=== PATIENT | female | born 1955 | race Caucasian/White ===

== ENCOUNTER 2018-10-03 05:33 | Inpatient (IN) | payer BC ==
[2018-09-25 16:06] LABS: BASOPHILS # (AUTO) 0.1 X10'3 (0-0.2); BASOPHILS % (AUTO) 0.7 % (0-1); EOSINOPHILS # (AUTO) 0.1 X10'3 (0-0.9); EOSINOPHILS % (AUTO) 1.2 % (0-6); LYMPHOCYTES # (AUTO) 3.9 X10'3 (1.1-4.8); LYMPHOCYTES % (AUTO) 37.9 % (21-51); MEAN CORPUSCULAR HEMOGLOBIN 30.2 PG (27.0-31.0); MEAN CORPUSCULAR HGB CONC 33.5 g/dL (33.0-36.5); MEAN CORPUSCULAR VOLUME 90.1 FL (78-98); MEAN PLATELET VOLUME 8.3 FL (7.4-10.4); MONOCYTES # (AUTO) 0.8 X10'3 (0-0.9); MONOCYTES % (AUTO) 7.6 % (2-12); NEUTROPHILS # (AUTO) 5.4 X10'3 (1.8-7.7); NEUTROPHILS % (AUTO) 52.6 % (42-75); PRE OP HEMATOCRIT 40.7 % (35.0-45.0); PRE OP HEMOGLOBIN 13.7 g/dL (12.0-16.0); PRE OP PLATELET COUNT 292 X10'3 (140-440); RED BLOOD COUNT 4.52 X10'6 (4.20-5.60); RED CELL DISTRIBUTION WIDTH 13.7 % (11.5-14.5)
[2018-09-25 16:11] LABS: ALBUMIN 3.9 G/DL (3.4-5.0); ALBUMIN/GLOBULIN RATIO 1.2 (1.1-1.5); ALKALINE PHOSPHATASE 69 IU/L (46-116); BLOOD UREA NITROGEN 12 MG/DL (7-18); BUN/CREATININE RATIO 17.9 (6.6-38.0); CALCIUM 9.3 MG/DL (8.5-10.1); CHLORIDE 105 MMOL/L (99-107); CREATININE 0.67 MG/DL (0.40-0.90); PRE OP ALT 35 U/L (30-65); PRE OP ANION GAP 8 (8-16); PRE OP AST 18 U/L (10-37); PRE OP BILIRUB, TOTAL 0.4 MG/DL (0.0-1.0); PRE OP GLUCOSE 125 MG/DL (70-104); PRE OP POTASSIUM 3.9 MMOL/L (3.4-5.1); PRE OP SODIUM 140 MMOL/L (135-145); TOTAL CARBON DIOXIDE 27.3 MMOL/L (24-32); TOTAL PROTEIN 7.2 G/DL (6.4-8.2); eGFR 89 ML/MIN
[2018-10-03] VITALS (32 sets, daily range): BP systolic 107–156; BP diastolic 49–79
[~2018-10-03] VITALS: Ht 162.6 cm; Wt 80.1 kg
[~2018-10-03 05:33] MED LIST: ASPI-611 PO; BENA10TA74 PO; DIPH1TAB PO; ROSU20TA2 PO; SERT25TA PO; acetaminophen 325mg tablet PO ONE; clindamycin-Cleocin 900mg/D5W 50 ML IV ONE; famotidine 20mg tablet PO ONE; gabapentin 300mg capsule PO ONE; metoclopramide 5 mg/ml inj IV ONE; oxyCODONE SR 10mg (sust. release) tab -2 tabs (20mg) PO ONE; ringers solution, lacted 1,000 ML IV SCH; tranexamic acid inj. 1,000 MG in normal saline 100 ML IV ONE; vancomycin inj 1,500 MG in normal saline 300ml IV soln IV ONE
[2018-10-03] MEDS ORDERED: LIDOcaine 1% (10mg/ml) 2ml vial ONE (05:49)
[2018-10-03] MEDS ORDERED: epiNEPHrine 1 mg/ml inj ONE (07:01)
[2018-10-03] MEDS ORDERED: ketorolac trometh. 30mg/ml inj. ONE (07:01)
[2018-10-03] MEDS ORDERED: morphine 10mg/ml inj. ONE (07:01)
[2018-10-03] MEDS ORDERED: ROPIVAcaine 0.5% (5mg/ml) 30ml vial ONE (07:01)
[2018-10-03] MEDS ORDERED: sevoflurane 250ml liquid IH ONE (08:30)
[2018-10-03] MEDS ORDERED: LIDOcaine 1%/PF 5ML 10 MG/ML VIAL ONE (08:30)
[2018-10-03] MEDS ORDERED: propofol 10mg/ml 20ml vial IV ONE (08:30)
[2018-10-03] MEDS ORDERED: fentaNYL /PF 50mcg/ml 5ml ampule ONE (08:41)
[2018-10-03] MEDS ORDERED: midazolam 2 mg/2 ml injection ONE (08:41)
[2018-10-03] MEDS ORDERED: cloNIDine hcl/PF 100mcg/ml inj ONE (08:45)
[2018-10-03] MEDS ORDERED: Thrombin (Bovine) 5,000 unit vial TP ONE (09:29)
[2018-10-03] MEDS ORDERED: ondansetron/PF 4mg/2ml inj IV PRN ×2 (09:45→09:55)
[2018-10-03] MEDS ORDERED: ringers solution, lacted 1,000 ML IV SCH (09:45)
[2018-10-03] MEDS ORDERED: meperidine/PF 25mg/ml syringe IV PRN ×3 (09:45)
[2018-10-03] MEDS ORDERED: morphine 4 MG/ML inj SYRINge IV PRN ×2 (09:45)
[2018-10-03] MEDS: potassium cl 20mEq in 1/2 NS 1,000 ML IV SCH ×2 (09:54→17:54)
[2018-10-03] MEDS ORDERED: HYDROmorphone 1 mg/ml syringe IV PRN (09:55)
[2018-10-03] MEDS ORDERED: diphenhydrAMINE 25mg capsule PO PRN ×2 (09:55)
[2018-10-03] MEDS ORDERED: bisacodyl 10mg suppository rectal RC PRN (09:55)
[2018-10-03] MEDS ORDERED: oxyCODONE IR 5mg (immed. release) tablet PO PRN (09:55)
[2018-10-03] MEDS ORDERED: acetaminophen 325mg tablet PO PRN (09:55)
[2018-10-03] MEDS ORDERED: HYDROmorphone inj. 0.5 MG/0.5 ML DISP.SYRIN IV PRN (09:55)
[2018-10-03] MEDS ORDERED: magnesium hydroxide 30ml (MOM) UD suspension PO PRN (09:55)
[2018-10-03] MEDS ORDERED: ondansetron/PF 4mg/2ml inj ONE (10:20)
[2018-10-03] MEDS ORDERED: dexamethasone sod phosphate 4mg/ml inj. ONE (10:20)
--- NOTE | 2018-10-03 10:28 | NUR ---
Received from OR via , accompanied by DR. CARTER, Anesthesiologist and report given by Anesthesiolgist. S/P REVISION RT. TKA PER DR. NIETO W/ GENERAL ANESTHESIA. PT. SOMULENT. RESPS. SHALLOW, UNLABORED. COLOR GOOD. @ BEDSIDE. RT. HAND IV PATENT. RT. KNEE DRSG. DRY & INTACT. JOSIANE DRSG IN PLACE W/ GOOD SEAL. POWDER GILBERT TO RT. KNEE. RT. FOOT PINK, WARM W/ GOOD CAP REFILL. COTE TO GRAVITY W/ CL. YELLOW URINE PRESENT. PT. REASSURED.
[2018-10-03] MEDS ORDERED: naloxone 0.4 mg/ml inj ONE (10:34)
--- NOTE | 2018-10-03 10:55 | NUR ---
PT. AWAKE, APPROP. RESPS. EVEN & UNLABORED. DENIES PAIN. REASSURED.
--- NOTE | 2018-10-03 11:30 | NUR ---
AWAKES EASILY TO NAME. ALERT & APPROP. RESPS. EVEN & UNLABORED. DENIES PAIN @ THIS TIME. STATES "RT. LEG FEELS HEAVY". ADDUCTOR CANAL BLOCK EXPLAINED, PT. REASSURED. RT. KNEE BANDAGE DRY & INTACT. JOSIANE DRSG INTACT. POWDER GILBERT IN PLACE TO RT. KNEE. RT. FOOT PINK, WARM, W/ GOOD CAP REFILL. + PALP RT. DP PULSE.
--- NOTE | 2018-10-03 12:45 | NUR ---
TO BEDSIDE. PT. A X O X 4. APPROP. DENIES PAIN @ THIS TIME. RESPS. EVEN & UNLABORED. REASSURED.
--- NOTE | 2018-10-03 13:15 | NUR ---
REPORT CALLED TO CAMDEN BROWNLEE.
--- NOTE | 2018-10-03 13:40 | NUR ---
C/O OF RT. KNEE PAIN. MEDICATED PER ORDER. REASSURED
--- NOTE | 2018-10-03 14:10 | NUR ---
Report called to receiving nurse, CAMDEN BROWNLEE . Transferred via BED. PT. DROWSY, BUT AWAKES QUICKLY TO NAME. RESPS EVEN & UNLABORED. PT. STATES PAIN "OKAY AFTER MED", UNABLE TO RATE. RT. KNEE JOSIANE BANDAGE DRY & INTACT, POWDER GILBERT IN PLACE. DRSGS DRY & INTACT. RT. FOOT PINK, WARM W/ GOOD CAP REFLL. STRONG PALP DP PULSE. COTE TO GRAVITY W/CL. YELLOW URINE. PT. REASSURED. TO FLOOR W/ RN, ON TELE. Belongings . Special Issues communicated to receiving nurse.
[2018-10-03] MEDS: gabapentin 300mg capsule PO SCH ×2 (18:15→20:18)
[2018-10-03] MEDS: acetaminophen 325mg tablet PO SCH ×2 (18:16→20:00)
[2018-10-03] MEDS ORDERED: vancomycin/NS 1 GM ADD-VANTAGE 250 ML IV SCH (20:00)
[2018-10-03] MEDS ORDERED: sennosides 8.6mg tablet PO SCH (21:00)
[2018-10-03] MEDS ORDERED: sertraline 25mg tablet PO SCH (21:00)
[2018-10-03] MEDS ORDERED: atorvastatin 20mg tablet PO SCH (21:00)
[2018-10-04] MEDS: acetaminophen 325mg tablet PO SCH ×2 (01:13→07:48)
[2018-10-04] MEDS: potassium cl 20mEq in 1/2 NS 1,000 ML IV SCH ×2 (01:14→09:54)
[2018-10-04] MEDS: oxyCODONE IR 5mg (immed. release) tablet PO PRN ×2 (01:15→05:31)
[2018-10-04 02:00] VITALS: BP 117/58
--- NOTE | 2018-10-04 06:10 | NUR ---
Patient in room [facility] 4016. I have received report from [place] RN and had the opportunity to ask questions and assume patient care.
--- NOTE | 2018-10-04 06:13 | NUR ---
Problems reprioritized. Patient report given, questions answered & plan of care reviewed with TORRIE Warren.
[2018-10-04 06:23] VITALS: BP 115/57
[2018-10-04 06:25] LABS: BASOPHILS % (AUTO) 0.1 % (0-1); EOSINOPHILS % (AUTO) 0 % (0-6); HEMATOCRIT 34.4 % (35.0-45.0); HEMOGLOBIN 11.8 g/dl (12.0-16.0); LYMPHOCYTES # (AUTO) 1.6 X10'3 (1.1-4.8); LYMPHOCYTES % (AUTO) 11.4 % (21-51); MEAN CORPUSCULAR HEMOGLOBIN 30.6 PG (27.0-31.0); MEAN CORPUSCULAR HGB CONC 34.3 g/dL (33.0-36.5); MEAN CORPUSCULAR VOLUME 89.4 FL (78-98); MEAN PLATELET VOLUME 9.1 FL (7.4-10.4); MONOCYTES # (AUTO) 0.9 X10'3 (0-0.9); MONOCYTES % (AUTO) 6.3 % (2-12); NEUTROPHILS # (AUTO) 11.7 X10'3 (1.8-7.7); NEUTROPHILS % (AUTO) 82.2 % (42-75); PLATELET COUNT 270 X10'3 (140-440); RED BLOOD COUNT 3.84 X10'6 (4.20-5.60); RED CELL DISTRIBUTION WIDTH 13.4 % (11.5-14.5); WHITE BLOOD COUNT 14.2 X10'3 (4.5-11.0)
[2018-10-04 06:37] LABS: ANION GAP 8 (8-16); CHLORIDE 110 MMOL/L (99-107); POTASSIUM 4.8 MMOL/L (3.5-5.1); SODIUM 142 MMOL/L (135-145); TOTAL CARBON DIOXIDE 23.9 MMOL/L (24-32)
[2018-10-04] MEDS: gabapentin 300mg capsule PO SCH (07:47)
[2018-10-04 07:49] VITALS: BP_SYST 124
[2018-10-04] MEDS ORDERED: aspirin 81mg tablet.DR PO SCH (08:00)
[2018-10-04] MEDS ORDERED: diphenoxylate/atropine tablet (Lomotil) PO SCH (08:00)
[2018-10-04] MEDS ORDERED: lisinopril 10 MG tablet PO SCH (08:00)
[2018-10-04] MEDS ORDERED: aspirin 325mg tablet PO SCH (08:30)
--- NOTE | 2018-10-04 11:30 | NUR ---
Discharge instructions were reviewed with pt. Pt verbalized understanding. All of pt's belongings were returned to pt. Pt is alert, oriented and in good spirits. Pt was wheeled downstairs to be driven home by family.
[2018-10-04] MEDS ORDERED: celeCOXIB 100mg capsule PO SCH (20:00)
[2018-10-05] MEDS ORDERED: acetaminophen 325mg tablet PO PRN (09:55)
== END 2018-10-04 11:15 | disposition home or self-care (01) | DRG 465 ==
LOC: PAS 05:33 → ORTHO 4S 09:54 → OBSVTOIN 09:54
PROVIDERS: ADMIT Orthopaedic Surgery; ATTEND Orthopaedic Surgery
PROC: 0SUC09Z Supplement Right Knee Joint with Liner, Open Approach (ICD-10-PCS; 2018-10-03)
PROC: 3E0T3BZ Introduction of Anesthetic Agent into Peripheral Nerves and Plexi, Percutaneous Approach (ICD-10-PCS; 2018-10-03)
PROC: 0SPC09Z Removal of Liner from Right Knee Joint, Open Approach (ICD-10-PCS; principal; 2018-10-03 08:30)
DX: T84.032A Mechanical loosening of internal right knee prosthetic joint, initial encounter (principal); I10 Essential (primary) hypertension; Y79.2 Prosthetic and other implants, materials and accessory orthopedic devices associated with adverse incidents; Z88.0 Allergy status to penicillin; Z91.040 Latex allergy status; Z88.2 Allergy status to sulfonamides; Y92.89 Other specified places as the place of occurrence of the external cause
CPT/HCPCS: Z7506; Z7508; 36415; 73501; 80051; 80053; 82948; 85025; 87081; 97110; 97116; 97161; 97530; A4215; A4618; A7000; A9272; C1758; C1776; G0378; J0171; J0735; J1100; J1885; J2001; J2175; J2250; J2270; J2310; J2405; J2704; J2765; J2795; J3010; J3370; J3480; J3490; J7120; Q0163